=== PATIENT | female | born 1970 | race Caucasian/White ===

== ENCOUNTER 2017-02-27 16:18 | Emergency (ER) | payer OTHER, MEDICARE ==
[~2017-02-27 16:18] MED LIST: ASPIRIN EC81 MG PO
== END 2017-02-27 17:55 | disposition home or self-care (01) ==
LOC: ER1 16:18
DX: S16.1XXA Strain of muscle, fascia and tendon at neck level, initial encounter (principal); F17.210 Nicotine dependence, cigarettes, uncomplicated; Z88.1 Allergy status to other antibiotic agents; Z88.6 Allergy status to analgesic agent; V43.52XA Car driver injured in collision with other type car in traffic accident, initial encounter; Y93.89 Activity, other specified; Y92.410 Unspecified street and highway as the place of occurrence of the external cause
CPT/HCPCS: 70450; 71020; 72125; 72170; 99284

== ENCOUNTER → 2021-01-04 | Outpatient (CLI) | payer MEDICARE ==
[~2021-01-04] MED LIST changes: +BRILINTA90 MG PO; +CARDIZEM 90MG T90 MG PO; +CRESTOR10 MG PO; +CRESTOR40 MG PO; +DIABETA 2.5 MG2.5 MG PO; +ECOTRIN81 MG PO; +FISH OIL 1,0001 EAC4 PO; +LINZESS145 MCG PO; +LIORESAL TAB 1010 MG PO; +LIPITOR TAB 2020 MG PO; +MIRALAX17 GM PO; +NABUMETONE500 MG PO; +NAPROSYN500 MG PO; +NAPROXEN 250 M250 MG PO; +NORCO 5-325 TA1 EACH PO; +PRINIVIL5 MG PO; +PROTONIX40 MG PO; +PYRIDIUM100 MG PO; +VENTOLIN HFA 66.7 GM INH
== END ==
LOC: MAMO 08:30
DX: Z12.31 Encounter for screening mammogram for malignant neoplasm of breast (principal)
CPT/HCPCS: 77063; 77067

== ENCOUNTER → 2021-01-19 | Outpatient (CLI) | payer MEDICARE, SELFPAY | LOC: CT 08:58 | DX: R31.0 Gross hematuria (principal) | CPT/HCPCS: 36415; 82565; Q9963; Q9967 ==

== ENCOUNTER → 2021-03-23 | Outpatient (CLI) | payer MEDICARE | LOC: KOH-I 08:17 | DX: R07.89 Other chest pain (principal) | CPT/HCPCS: 71046 ==

== ENCOUNTER → 2021-05-26 | Outpatient (CLI) | payer MEDICARE ==
[2021-05-26 07:01] LABS: HEMOGLOBIN 12.9 gm/dl (12.3-15.3); RED BLOOD COUNT 5.05 M/UL (4.00-5.10); WHITE BLOOD COUNT 8.5 K/UL (4.5-11.0)
== END ==
LOC: LAB 06:19
DX: R07.89 Other chest pain (principal); I10 Essential (primary) hypertension; E78.2 Mixed hyperlipidemia; I25.10 Atherosclerotic heart disease of native coronary artery without angina pectoris; R60.0 Localized edema; E11.65 Type 2 diabetes mellitus with hyperglycemia
CPT/HCPCS: 36415; 80053; 80061; 83036; 83735; 84443; 85025

== ENCOUNTER → 2022-01-28 | Outpatient (CLI) | payer MEDICARE | LOC: LAB 09:51 | PROVIDERS: Nurse Practitioner Family | DX: E11.9 Type 2 diabetes mellitus without complications (principal) | CPT/HCPCS: 36415; 80053; 83036; 84443 ==

== ENCOUNTER → 2022-04-20 | Outpatient (CLI) | payer MEDICARE ==
[2022-04-20 06:56] LABS: HEMOGLOBIN 13.1 gm/dl (12.3-15.3); RED BLOOD COUNT 4.94 M/UL (4.00-5.10); WHITE BLOOD COUNT 9.4 K/UL (4.5-11.0)
[2022-04-20 07:24] LABS: BUN/CREATININE RATIO 13 (0-10)
== END ==
LOC: LAB 06:36
PROVIDERS: Nurse Practitioner Family
DX: I10 Essential (primary) hypertension (principal); R07.2 Precordial pain; R00.2 Palpitations; R60.0 Localized edema; E78.5 Hyperlipidemia, unspecified
CPT/HCPCS: 36415; 80053; 80061; 83735; 84443; 85025

== ENCOUNTER → 2022-05-02 | Outpatient (CLI) | payer MEDICARE ==
[2022-05-02 12:16] LABS: BUN/CREATININE RATIO 13 (0-10)
[2022-05-03 12:13] LABS: CREATININE, URINE 25.6 mg/dL (Not Estab.); MICROALB/CREAT RATIO <12 (0-29)
== END ==
LOC: LAB 06:22
PROVIDERS: Nurse Practitioner Family
DX: E11.9 Type 2 diabetes mellitus without complications (principal)
CPT/HCPCS: 36415; 80053; 80061; 82043; 82570; 83036